=== PATIENT | male | born 1980 | race Two or more races ===

== ENCOUNTER 2020-12-23 03:21 | Emergency (ER) | payer BC, OTHER ==
[~2020-12-23] VITALS: Ht 172.7 cm; Wt 83.9 kg
[~2020-12-23 03:21] MED LIST: ADDERAL20 MG ORAL; ARTIFICIAL TEA1 EAC2 OP; NAPROSYN500 M1 ORAL; NKM; NORCO 5-325 TA1 EACH ORAL; ONDANSETRON ODT4 MG ORAL
[2020-12-23 03:36] VITALS: BP 126/82
--- NOTE | 2020-12-23 03:38 | NUR ---
Nurse Note: Pt walked in c/o palpatations for few days. Pt stated he wakes up with palpatations, LT arm and leg numbness and tingling. Pt stated he has few stressers in his life. hx anxiety. Pt placed on cardiac care nurse, EKG taken and given to .
--- NOTE | 2020-12-23 03:52 | Emergency Room Report ---
History of Present Illness General Chief Complaint: Palpitations Source: Patient Present Illness HPI Disclaimer: Please note that this report is being documented using [employer] technology. This can lead to erroneous entry secondary to incorrect interpretation by the dictating instrument. HPI: 40-year-old male presents for evaluation of palpitations. The patient awoke from sleep approximately 2 AM with his heart racing, sweaty palms and feet, jitteriness and anxiety. He reports pinprick sensations over the left side of his chest that did not radiate. Denies shortness of breath. Denies cough, congestion, fever or chills. This has been happening almost nightly for approximately 3 weeks. His PMD started him on Xanax but he has not been taking it. He did take 1/2 tablet of Xanax after symptoms began today and resolved his symptoms. Currently resting comfortably but frustrated at his poor sleep over the past week. Denies changes in diet. He is cut out caffeine. Does not smoke. No other medical history reported. Unable to identify any new stressors in his life. He has an appointment to see his PMD for an office visit 12/31. PMH: Denied PSH: Denied Allergies: Denied Social Hx: Denied Allergies: Coded Allergies: No Known Allergies (Unverified , 12/02/12) COVID-19 Screening Contact w/high risk pt: No Experienced COVID-19 symptoms?: No COVID-19 Testing performed [employer] GROUNDS: No Nursing Documentation-PMH Hx Cardiac Problems: No Hx Cancer: No Hx Gastrointestinal Problems: No Hx Neurological Problems: No Review of Systems All Other Systems: negative except mentioned in HPI Physical Exam Vital Signs Date Time Temp Pulse Resp B/P (MAP) Pulse Ox O2 Delivery O2 Flow Rate FiO2 12/23/20 03:25 98.4 80 16 126/82 (97) 95 Room Air General: Awake and alert, no acute distress HEENT: NC/AT. EOMI. Cardiovascular: RRR. S1 and S2 normal. No murmur appreciated Resp: Normal work of breathing. No cough, wheezing or crackles appreciated Abdomen: Abdomen is soft, nondistended. Nontender Skin: Intact. No abrasions, laceration or rash over the exposed skin MSK: Normal tone and bulk. Moving all extremities. No obvious deformity. Neuro: Awake and alert. Mentating appropriately. Medical Decision Making Diagnostic Impression: Primary Impression: Palpitations ER Course Is a 40-year-old male presenting for evaluation of palpitations. Differential includes but not limited to arrhythmia, ACS, dehydration, electrolyte abnormality, thyroid dysfunction, anxiety, panic disorder, GERD, obstructive sleep apnea among others. EKG on arrival shows normal sinus rhythm without evidence of ischemia. He is currently asymptomatic. The patient is declining chest x-ray as he states one was ordered by his PMD 2 days ago which he reports was unremarkable. Labs including troponin and TSH returned within normal limits. Patient found resting comfortably on reevaluation. Heart score is low and the patient is appropriate for outpatient follow-up with his PMD as scheduled or sooner if possible. Copies of EKG and labs performed today included in discharge paperwork. Instructed to return with new or worsening s ymptoms. Heart score: History: 1 EC Age: 1 Risk factors: 0 Initial troponin: 0 Total: 1 Laboratory Tests Test 12/23/20 03:25 12/23/20 03:50 White Blood Count 5.5 K/UL (4.8-10.8) Red Blood Count 4.87 M/UL (4.70-6.10) Hemoglobin 15.3 G/DL (14.2-18.0) Hematocrit 44.2 % (42.0-52.0) Mean Corpuscular Volume 91 FL (80-99) Mean Corpuscular Hemoglobin 31.3 PG (27.0-31.0) H Mean Corpuscular Hemoglobin Concent 34.5 G/DL (32.0-36.0) Red Cell Distribution Width 11.1 % (11.6-14.8) L Platelet Count 208 K/UL (150-450) Mean Platelet Volume 7.8 FL (6.5-10.1) Neutrophils (%) (Auto) 39.8 % (45.0-75.0) L Lymphocytes (%) (Auto) 48.3 % (20.0-45.0) H Monocytes (%) (Auto) 6.6 % (1.0-10.0) Eosinophils (%) (Auto) 4.4 % (0.0-3.0) H Basophils (%) (Auto) 1.0 % (0.0-2.0) Sodium Level 140 MMOL/L (136-145) Potassium Level 3.8 MMOL/L (3.5-5.1) Chloride Level 104 MMOL/L (98-107) Carbon Dioxide Level 27 MMOL/L (21-32) Anion Gap 9 mmol/L (5-15) Blood Urea Nitrogen 15 mg/dL (7-18) Creatinine 1.1 MG/DL (0.55-1.30) Estimated Glomerular Filtration Rate > 60 mL/min (>60) Glucose Level 111 MG/DL (74-106) H Calcium Level 9.1 MG/DL (8.5-10.1) Total Bilirubin 0.8 MG/DL (0.2-1.0) Aspartate Amino Transferase (AST) 22 U/L (15-37) Alanine Aminotransferase (ALT) 29 U/L (12-78) Alkaline Phosphatase 60 U/L (46-116) Troponin I 0.000 ng/mL (0.000-0.056) Total Protein 7.5 G/DL (6.4-8.2) Albumin 4.2 G/DL (3.4-5.0) Globulin 3.3 g/dL Albumin/Globulin Ratio 1.3 (1.0-2.7) Thyroid Stimulating Hormone (TSH) 3.423 uiU/mL (0.358-3.740) Urine Opiates Screen Negative (NEGATIVE) Urine Barbiturates Screen Negative (NEGATIVE) Phencyclidine (PCP) Screen Negative (NEGATIVE) Urine Amphetamines Screen Negative (NEGATIVE) Urine Benzodiazepines Screen Negative (NEGATIVE) Urine Cocaine Screen Negative (NEGATIVE) Urine Marijuana (THC) Screen Negative (NEGATIVE) EKG Diagnostic Results Troponin ordered: Yes When was troponin ordered?: Dec 23, 2020 EKG Time: 03:32 Rate: normal Rhythm: NSR ST Segments: no acute changes Other Impression Sinus rhythm, normal axis, normal intervals, QTC 423 ms, no ST segment changes. Rhythm Strip Diag. Results Rhythm Strip Time: 03:32 EP Interpretation: yes Rate: 60s Rhythm: NSR, no PVC's, no ectopy Last Vital Signs Date Time Temp Pulse Resp B/P (MAP) Pulse Ox O2 Delivery O2 Flow Rate FiO2 12/23/20 03:36 98.4 70 16 126/82 95 Room Air Disposition: HOME, SELF-CARE Condition: Stable Referrals: [facility],REFERRING (PCP) Randall Kern MD Dec 23, 2020 03:52
--- NOTE | 2020-12-23 03:53 | NUR ---
Nurse Note: IV est, blood drawn and sent to lab. Pt provided urine. Pt placed back on monitor, pt calm, VSS, no signs of acute distress. Addendum: 12/23/20 at 0445 by [email or web address] Nurse Note: Pt refused x-ray. Pt stated he took a recent x-ray and does not need a new one. notified.
[2020-12-23 04:02] LABS: EOSINOPHILS % (AUTO) 4.4 % (0.0-3.0); HEMATOCRIT 44.2 % (42.0-52.0); HEMOGLOBIN 15.3 G/DL (14.2-18.0); LYMPHOCYTES % (AUTO) 48.3 % (20.0-45.0); MEAN CORPUSCULAR VOLUME 91 FL (80-99); MONOCYTES % (AUTO) 6.6 % (1.0-10.0); NEUTROPHILS % (AUTO) 39.8 % (45.0-75.0); PLATELET COUNT 208 K/UL (150-450); RED BLOOD COUNT 4.87 M/UL (4.70-6.10); RED CELL DISTRIBUTION WIDTH 11.1 % (11.6-14.8); WHITE BLOOD COUNT 5.5 K/UL (4.8-10.8)
[2020-12-23 04:24] LABS: ALANINE AMINOTRANSFERASE 29 U/L (12-78); ALBUMIN 4.2 G/DL (3.4-5.0); ALBUMIN/GLOBULIN RATIO 1.3 (1.0-2.7); ALKALINE PHOSPHATASE 60 U/L (46-116); ANION GAP 9 mmol/L (5-15); ASPARTATE AMINO TRANSFERASE 22 U/L (15-37); BILIRUBIN,TOTAL 0.8 MG/DL (0.2-1.0); CALCIUM 9.1 MG/DL (8.5-10.1); CARBON DIOXIDE 27 MMOL/L (21-32); CHLORIDE 104 MMOL/L (98-107); CREATININE 1.1 MG/DL (0.55-1.30); POTASSIUM 3.8 MMOL/L (3.5-5.1); SODIUM 140 MMOL/L (136-145)
[2020-12-23 04:35] LABS: BLOOD UREA NITROGEN 15 mg/dL (7-18)
[2020-12-23 04:50] VITALS: BP 118/78
--- NOTE | 2020-12-23 04:50 | NUR ---
ED Nurse Note: Pt cleared by health care Provider for discharge. DC instructions/prescription was given and explained to pt and verbalized understanding of teachings. Instructed pt to follow up with PCP within 2-5 days. All medical deviecs such as ID band removed; IV removed, cath intact, site bandaged. Pt is AAO x4, ambulatory and left with all personal belongings.
== END 2020-12-23 04:50 | disposition home or self-care (01) ==
LOC: EMR 03:38
DX: R00.2 Palpitations (principal); R20.2 Paresthesia of skin
CPT/HCPCS: 36415; 80053; 80307; 84443; 84484; 85025; 93005; 99284